=== PATIENT | female | born 1945 | race Caucasian/White ===

== ENCOUNTER → 2023-11-18 13:19 | Outpatient (REF) | payer OTHER, SELFPAY ==
[2023-11-18 15:06] LABS: ALT (SGPT) 26 U/L (0-35); AST (SGOT) 32 U/L (14-36); Albumin 4.4 g/dl (3.5-5.0); Alkaline Phosphatase 63 U/L (38-126); Blood Urea Nitrogen 19 mg/dl (7-17); Carbon Dioxide 27 mmol/L (22-30); Chloride 102 mmol/L (98-107); Glucose 131 mg/dl (70-99); Potassium 4.1 mmol/L (3.5-5.1); Sodium 138 mmol/L (135-145); Total Bilirubin 0.3 mg/dl (0.2-1.3); Total Protein 6.9 g/dl (6.3-8.2); eGFR > 60.00
[2023-11-18 15:11] LABS: C-Reactive Protein < 5.00 mg/L (0.0-10.00)
[2023-11-18 15:23] LABS: % Basophils 0.5 % (0-2); % Eosinophils 5.5 % (0-6); % Immature Granulocytes 0.6 % (0-0.5); % Monocytes 8.9 % (1.7-9.3); % Neutrophils 64.5 % (42.2-75.2); Absolute Eosinophils 0.4 10^3/uL (0-0.7); Absolute Immature Granulocytes 0.1 10^3/uL (0-0.05); Absolute Lymphocytes 1.6 10^3/uL (1.2-3.4); Absolute Monocytes 0.7 10^3/uL (0.1-0.6); Absolute Neutrophils 5.1 10^3/uL (1.4-6.5); Hematocrit 35.6 % (37.0-47.0); Hemoglobin 11.6 g/dL (12.0-16.0); Mean Corp Hgb Conc. 32.6 g/dL (33.0-37.0); Mean Corpuscular Hgb 27.8 pg (27.0-31.0); Mean Corpuscular Volume 85.2 fL (81.0-99.0); Mean Platelet Volume 8.6 fL (7.4-10.4); Nucleated Red Blood Cells % 0 %; Platelet Count 303 10^3/uL (130-400); Red Blood Cell Count 4.18 10^6/uL (4.20-5.40); Red Cell Dist. Width 15.1 % (11.5-14.5); White Blood Cell Count 7.9 10^3/uL (4.8-10.8)
[2023-11-18 15:24] LABS: Erythrocyte Sed Rate 17 mm/hour (0-20)
== END ==
LOC: REG 13:19
PROVIDERS: ATTENDING PHYSICIAN Internal Medicine Rheumatology; FAMILY PHYSICIAN Internal Medicine
DX: M06.09 Rheumatoid arthritis without rheumatoid factor, multiple sites (principal)
CPT/HCPCS: 36415; 80053; 85025; 85652; 86140

== ENCOUNTER → 2023-11-26 09:58 | Outpatient (REF) | payer OTHER, SELFPAY | LOC: RAD 09:58 | PROVIDERS: ATTENDING PHYSICIAN Internal Medicine Rheumatology; FAMILY PHYSICIAN Internal Medicine | DX: M81.0 Age-related osteoporosis without current pathological fracture (principal) | CPT/HCPCS: 77080 ==

== ENCOUNTER → 2024-01-05 10:59 | Outpatient (REF) | payer OTHER, SELFPAY | LOC: RAD 10:59 | PROVIDERS: ATTENDING PHYSICIAN Surgery; FAMILY PHYSICIAN Physician Assistant | DX: K43.2 Incisional hernia without obstruction or gangrene (principal) | CPT/HCPCS: 74177; Q9967 ==

== ENCOUNTER 2024-02-10 06:43 | Day surgery (SDC) | payer OTHER, SELFPAY ==
[2024-01-20 07:56] VITALS: BMI 30.2
[2024-01-20 09:29] LABS: Hematocrit 34.5 % (37.0-47.0); Hemoglobin 11.4 g/dL (12.0-16.0); Mean Corpuscular Hgb 27.5 pg (27.0-31.0); Mean Corpuscular Volume 83.1 fL (81.0-99.0); Mean Platelet Volume 8.7 fL (7.4-10.4); Platelet Count 382 10^3/uL (130-400); Red Blood Cell Count 4.15 10^6/uL (4.20-5.40); Red Cell Dist. Width 15.2 % (11.5-14.5); White Blood Cell Count 8.8 10^3/uL (4.8-10.8)
[2024-01-20 10:24] LABS: Blood Urea Nitrogen 29 mg/dl (7-17); Calcium 9.9 mg/dl (8.4-10.2); Carbon Dioxide 26 mmol/L (22-30); Chloride 102 mmol/L (98-107); Estimated Creatinine Clearance 56 ml/min; Glucose 61 mg/dl (70-99); Sodium 140 mmol/L (135-145); eGFR > 60.00
[2024-01-20 11:09] LABS: Glycohemoglobin (HgbA1c) 8.7 % (4.0-5.6)
--- NOTE | 2024-02-05 15:13 | PTCARENOTE ---
Hgb A1c 8.7 collected on 01/20/24; Michelle at 's office was notified.
[2024-02-10] VITALS (12 sets, daily range): BP systolic 103–137; BP diastolic 52–80; BMI 30.2
[2024-02-10 11:37] LABS: Glucose - Point of Care 176 mg/dl (70-99)
[2024-02-10] MEDS: TYLENOL 1000 MG PO (11:38)
[2024-02-10] MEDS: NORMOSOL-R 1000 IV ×2 (11:38→16:03)
[2024-02-10] MEDS: EMEND 40 MG PO (11:53)
--- NOTE | 2024-02-10 13:49 | W.IMMPOSTOP ---
Surgical Immed Post Op Note
-
Primary Surgeon: Faye
Assisting Surgeon: TATE Ryan
Pre-op Diagnosis: Ventral incisional hernia
Post-op Diagnosis: Ventral incisional hernia
Procedure Performed: Robotic ventral incisional hernia repair with mesh
Anesthesia Type: General
Specimen / Cultures: None
Estimated Blood Loss: 3 cc
Complications: None
Operative Findings:
1. Fascial defect 5 x 5 cm, primary closure with #1 Stratafix
2. IPOM 10 x [address] mesh
[2024-02-10 14:26] LABS: Glucose - Point of Care 129 mg/dl (70-99)
--- NOTE | 2024-02-10 15:45 | PTCARENOTE ---
Pt. arrived from PACU via bed, pt. AAOx3, no c/o pain at this time. Call anderson within reach.
[2024-02-10 16:43] LABS: Glucose - Point of Care 104 mg/dl (70-99)
[2024-02-10] MEDS: ZETIA 10 MG PO (17:51)
[2024-02-10] MEDS: NEURONTIN 200 MG PO (17:52)
[2024-02-10] MEDS: CRESTOR 5 MG PO (20:58)
[2024-02-10] MEDS: TYLENOL 650 MG PO (20:58)
[2024-02-10 22:59] LABS: Glucose - Point of Care 120 mg/dl (70-99)
[2024-02-11] MEDS: TYLENOL 650 MG PO ×3 (00:46→13:19)
--- NOTE | 2024-02-11 03:05 | PTCARENOTE ---
Pt ambulated the halls w/assist x1 and SPC. Reports abdominal discomfort as tolerable, denies needs for additional analgesic. Voided on BSC x2. Abdominal binder in place. IVF completed. Call anderson within reach. Plan of care ongoing.
[2024-02-11 03:34] VITALS: BP 112/52
[2024-02-11] MEDS: TYLENOL PO (04:34)
[2024-02-11 07:15] VITALS: BP 115/58
[2024-02-11 08:00] LABS: Hematocrit 36.5 % (37.0-47.0); Hemoglobin 11.9 g/dL (12.0-16.0); Mean Corp Hgb Conc. 32.6 g/dL (33.0-37.0); Mean Corpuscular Hgb 27.5 pg (27.0-31.0); Mean Corpuscular Volume 84.5 fL (81.0-99.0); Mean Platelet Volume 8.4 fL (7.4-10.4); Platelet Count 306 10^3/uL (130-400); Red Blood Cell Count 4.32 10^6/uL (4.20-5.40); Red Cell Dist. Width 15.3 % (11.5-14.5); White Blood Cell Count 8.7 10^3/uL (4.8-10.8)
[2024-02-11 08:41] LABS: Glucose - Point of Care 108 mg/dl (70-99)
[2024-02-11] MEDS: NEURONTIN 300 MG PO (08:42)
[2024-02-11] MEDS: ORETIC 25 MG PO (08:43)
[2024-02-11] MEDS: PROTONIX 40 MG PO (08:43)
[2024-02-11] MEDS: VASOTEC 10 MG PO (08:43)
[2024-02-11] MEDS: ZOLOFT 100 MG PO (08:43)
--- NOTE | 2024-02-11 08:47 | W.PN.GS2 ---
Today's Communication / Plan
-
-- DC this afternoon pending diet tolerance
Assessment / Plan
-
Patient is a 78 yo F POD#1 s/p robotic ventral incisional hernia repair with mesh
Recovering well. No postoperative concerns.
-- Regular diet, plan to monitory throughout the AM for ileus
-- Pain control: Tylenol, Toradol, Oxycodone
-- HLIV
-- Continue with abdominal binder
-- Home medications and Insulin regimen
-- DVT: Lovenox
-- DC this afternoon pending diet tolerance
Subjective Data
-
Date of Service: February 11, 2024
No complaints. Pain well-controlled. No nausea or vomiting. No flatus or BM. Ambulating. Voiding.
Objective Data
-
Intake and Output
02/10/24 02/11/24 02/12/24
06:59 06:59 06:59
Intake Total 2390 / 2390
Balance 2390 / 2390
Intake:
Oral fluids 1440 / 1440
IV fluids (Total) 950 / 950
Other:
Number of approximated MODERATE 2
amounts of urine
Vital Signs
Temp Pulse Resp BP Pulse Ox
99.4 F 89 18 115/58 97
02/11/24 07:15 02/11/24 08:43 02/11/24 07:15 02/11/24 08:43 02/11/24 07:15
Lab Results
02/11/24 07:30
Calcium 9.9 mg/dl (8.4-10.2) 01/20/24 07:50
Physical Exam
-
Gen: NAD
Abd: soft, NT/ND, non-peritoneal, binder in place, incisions c/d/i - no erythema, ecchymosis or drainage
[2024-02-11 09:14] LABS: Blood Urea Nitrogen 20 mg/dl (7-17); Calcium 9.1 mg/dl (8.4-10.2); Carbon Dioxide 27 mmol/L (22-30); Chloride 103 mmol/L (98-107); Estimated Creatinine Clearance 72 ml/min; Glucose 96 mg/dl (70-99); Potassium 4.3 mmol/L (3.5-5.1); Sodium 137 mmol/L (135-145); eGFR > 60.00
--- NOTE | 2024-02-11 11:00 | PTCARENOTE ---
Assumed care of pt from previous nurse. Pt reports pain as tolerable. Pt abdominal binder in place, round abdomen, hypoactive bowel sounds. DC order in as long as pt tolerates breakfast and lunch. Call anderson is within reach, pt rings earnest. will cont
to monitor.
--- NOTE | 2024-02-11 11:04 | CM ---
CM admitted 02/10/2024 for SDS and unavailable for IA. Pt discharged this am prior to CM arrival to the unit.
Chart reviewed - pt returned home with no needs. Ambulated in the hallways independently.
[2024-02-11 12:51] LABS: Glucose - Point of Care 132 mg/dl (70-99)
[2024-02-11 15:22] VITALS: BP 96/59
--- NOTE | 2024-02-11 16:13 | PTCARENOTE ---
Pt dc'd, paperwork reviewed, assisted to waiting car via staff escort to in waiting car. IV removed. All belongings with pt.
== END 2024-02-11 16:37 | disposition home or self-care (01) ==
LOC: SDS 06:43
PROVIDERS: ATTENDING PHYSICIAN Surgery; FAMILY PHYSICIAN Physician Assistant
DX: K43.2 Incisional hernia without obstruction or gangrene (principal)
CPT/HCPCS: 49593; 36415; 80048; 82962; 83036; 85027; 93005; C1713

== ENCOUNTER → 2024-03-17 17:46 | Outpatient (REF) | payer OTHER, SELFPAY | LOC: WDC 17:46 | PROVIDERS: ATTENDING PHYSICIAN Physician Assistant | DX: Z12.31 Encounter for screening mammogram for malignant neoplasm of breast (principal) | CPT/HCPCS: 77063; 77067 ==

== ENCOUNTER → 2025-03-07 11:11 | Outpatient (REF) | payer OTHER, SELFPAY ==
[2025-03-07 12:10] LABS: Hematocrit 29.6 % (37.0-47.0); Hemoglobin 9.0 g/dL (12.0-16.0); Mean Corp Hgb Conc. 30.4 g/dL (33.0-37.0); Mean Corpuscular Volume 80.2 fL (81.0-99.0); Nucleated Red Blood Cells % 0 %; Platelet Count 303 10^3/uL (130-400); Red Cell Dist. Width 18.9 % (11.5-14.5)
[2025-03-07 12:54] LABS: ALT (SGPT) 20 U/L (0-35); AST (SGOT) 22 U/L (14-36); Albumin 3.9 g/dl (3.5-5.0); Alkaline Phosphatase 74 U/L (38-126); Blood Urea Nitrogen 16 mg/dl (7-17); Calcium 8.7 mg/dl (8.4-10.2); Carbon Dioxide 23 mmol/L (22-30); Chloride 108 mmol/L (98-107); Glucose 134 mg/dl (70-99); HDL Cholesterol 46 mg/dl; LDL Cholesterol, Calculated 78 mg/dl; Potassium 4.1 mmol/L (3.5-5.1); Sodium 139 mmol/L (135-145); Total Protein 6.3 g/dl (6.3-8.2); Very Low Density Lipoprotein 40 mg/dl (0-30); eGFR > 60.00
[2025-03-07 12:55] LABS: C-Reactive Protein < 5.00 mg/L (0.0-10.00)
[2025-03-07 14:15] LABS: Glycohemoglobin (HgbA1c) 8.8 % (4.0-5.6)
[2025-03-07 16:07] LABS: Microalb - Urine Creatinine 41.100 mg/dl
[2025-03-07 16:11] LABS: Microalbumin, Random Urine 2.2 mg/dl (0.6-1.7)
== END ==
LOC: REG 11:11
PROVIDERS: ATTENDING PHYSICIAN Internal Medicine Rheumatology; FAMILY PHYSICIAN Physician Assistant
DX: E11.65 Type 2 diabetes mellitus with hyperglycemia (principal); E78.5 Hyperlipidemia, unspecified; M05.40 Rheumatoid myopathy with rheumatoid arthritis of unspecified site; I10 Essential (primary) hypertension
CPT/HCPCS: 36415; 80053; 80061; 82043; 82570; 83036; 83695; 84443; 85025; 85652; 86140

== ENCOUNTER → 2025-04-18 16:28 | Outpatient (REF) | payer OTHER, SELFPAY ==
[2025-04-18 17:27] LABS: Hematocrit 35.1 % (37.0-47.0); Hemoglobin 10.8 g/dL (12.0-16.0); Mean Corp Hgb Conc. 30.8 g/dL (33.0-37.0); Mean Corpuscular Volume 80.7 fL (81.0-99.0); Nucleated Red Blood Cells % 0 %; Platelet Count 337 10^3/uL (130-400); Red Cell Dist. Width 19.8 % (11.5-14.5); Reticulocyte Count 1.5 % (0.4-2.8)
[2025-04-18 17:39] LABS: Iron 115 ug/dl (37-170)
[2025-04-18 17:48] LABS: Total Iron Binding Capacity 423 ug/dl (265-497)
[2025-04-18 18:14] LABS: Ferritin 13.9 ng/ml (11.1-264.0)
== END ==
LOC: REG 16:28
PROVIDERS: ATTENDING PHYSICIAN Physician Assistant
DX: D50.9 Iron deficiency anemia, unspecified (principal)
CPT/HCPCS: 36415; 82728; 83540; 83550; 85025; 85045

== ENCOUNTER → 2025-07-11 13:00 | Outpatient (REF) | payer OTHER, SELFPAY | LOC: HWWDC 13:00 | PROVIDERS: ATTENDING PHYSICIAN Physician Assistant | DX: Z12.31 Encounter for screening mammogram for malignant neoplasm of breast (principal) | CPT/HCPCS: 77063; 77067 ==